=== PATIENT | female | born 1975 | race Caucasian/White ===

== ENCOUNTER → 2020-06-14 08:27 | Outpatient (CLI) | payer OTHER, SELFPAY ==
--- NOTE | ~2020-06-14 | MMUS_ITS ---
EXAMINATION: MM diagnostic nils BI w demetrice, US breast LT limited HISTORY: Left breast pain TECHNIQUE: Additional 3-D tomosynthesis images of the breasts were performed and synthetic 2-D images were generated. CAD analysis was submitted and interpreted. High resolution Limited left breast ultr asound was performed. COMPARISON: Comparison to multiple prior studies sequentially, with oldest reviewed study dated 04/06. BREAST PARENCHYMAL COMPOSITION: The breasts are heterogenously dense, which may obscure small masses. FINDINGS: MAMMOGRAPHIC FINDINGS: There are no suspicious masses, calcifications or architectural distortion in either breast to sugges t malignancy. ULTRASOUND: Limited left breast ultrasound, lateral half: At 4:00, 4 cm from the nipple, there is a 5 mm cyst. IMPRESSION: 1. No evidence for malignancy in either breast. 2. Routine yearly screening mammogram and regular clinical breast examination are recommended. BI-RADS Category 2: Benign finding(s). Reviewed, dictated and finalized at location A. IMPRESSION: 1. No evidence for malignancy in either breast. 2. Routine yearly screening mammogram and regular clinical breast examination a re recommended. BI-RADS Category 2: Benign finding(s).
== END ==
PROVIDERS: Visit Provider Obstetrics & Gynecology
DX: N64.4 Mastodynia (principal)
CPT/HCPCS: 76642; 77062; 77066; G0279

== ENCOUNTER → 2020-10-27 06:51 | Outpatient (CLI) | payer OTHER, SELFPAY ==
[2020-10-27 19:41] LABS: SARS-CoV-2 RNA PCR Negative
== END ==
PROVIDERS: PCP Family Medicine; Visit Provider Physician Assistant
DX: R05 Cough (principal); Z20.822 Contact with and (suspected) exposure to COVID-19
CPT/HCPCS: C9803; U0003; U0005

== ENCOUNTER → 2021-08-20 01:43 | Outpatient (CLI) | payer OTHER, SELFPAY ==
[2021-08-20 12:25] LABS: Influenza Control Positive
[2021-08-20 20:10] LABS: SARS-CoV-2 RNA PCR Positive
== END ==
PROVIDERS: PCP Family Medicine; Visit Provider Physician Assistant
DX: U07.1 COVID-19 (principal)
CPT/HCPCS: 87804; C9803; U0003; U0005

== ENCOUNTER 2021-12-01 07:21 | Observation (INO) | payer OTHER, SELFPAY ==
[2021-12-01] VITALS (14 sets, daily range): BP systolic 106–132; BP diastolic 54–83; PULSE 62–97; RESP 16–25; TEMP 36.2–36.8; O2SAT 98–100; BMI 26.4
--- NOTE | ~2021-12-01 | CT_ITS ---
EXAMINATION: CTA chest PE protocol DATE: 12/01/2021 09:11 INDICATION: Shortness of breath and cough TECHNIQUE: Computed tomography angiography (CTA) of the chest was performed with 100 mL Omnipaque-350 intravenous contrast timed to evaluate the pulmonary arteries. Coronal maximum intensity projection 3D-reconstructions were created by the technologist. The dose-length product (DLP) was 257.61 mGy-cm. Automated exposure control and iterative reconstruction technique were employed. COMPARISON: None. FINDINGS: The pulmonary arteries are well-opacified. No pulmonary embolism is identified. The lungs a re free of acute opacities. There is no pleural effusion or pneumothorax. No pathologically enlarged thoracic lymph nodes are identified. The heart size is normal. IMPRESSION: 1. No pulmonary embolism or acute cardiopulmonary abnormality. Reviewed, dictated and finalized at location B.
--- NOTE | ~2021-12-01 | XR_ITS ---
EXAMINATION: XR chest 1V portable 12/01/2021 07:49 INDICATION: Dyspnea, cough and shortness of breath PROCEDURE: AP portable chest COMPARISON: 03/24/2011 FINDINGS: The lungs are clear. The cardiomediastinal silhouette is within normal limits. There are no pleural effusions. There is no pneumothorax suspected. IMPRESSION: 1: NO ACUTE CARDIOPULMONARY DISEASE. Reviewed, dictated and finalized at location A.
--- NOTE | 2021-12-01 07:27 | ECG_ITS ---
Measurements Intervals Erin Rate: 92 P: 84 MS: 150 QRS: 69 QRSD: 93 T: -59 QT: 366 QTc: 454 Interpretive Statements SINUS RHYTHM ANTEROSEPTAL MYOCARDIAL INFARCTION , OF INDETERMINATE AGE [40+ ms Q WAVE IN V1-V4] MODERATE T-WAVE ABNORMALITY, CONSIDER INFERIOR ISCHEMIA [-0.1+ mV T-WAVE IN II/aVF] ABNORMAL ECG NO PREVIOUS ECG AVAILABLE FOR COMPARISON Electronically Signed On 12-01-2021 15:36:07 CDT by Gio Dobson M.D.
[2021-12-01] MEDS: methylPREDNISolone SOD SUCC 125 MG VIAL IV PUSH (07:31)
[2021-12-01] MEDS: IPRATROPIUM 0.5 MG/ALBUTEROL SULFATE 2.5 MG AMPUL.NEB 3 ML INHALATION ×5 (07:35→23:45)
[2021-12-01] MEDS: MAGNESIUM SULF 2 GM/WATER 50ML 2 GM/50 ML BAG IVPB (07:36)
--- NOTE | 2021-12-01 07:47 | ED.ASTHMA ---
HPI - Asthma General Chief Complaint: Asthma Stated Complaint: SOB ASTHMA Time Seen by Provider: 12/01/21 07:48 Source: patient Mode of arrival: ambulatory Limitations: no limitations History of Present Illness HPI Narrative: this is a 46-year-old female with a history asthma that presents with some increasing shortness of breath and cough, currently there is no audible wheezing patient respiratory rate 25. Patient has inhalers at home but was not able to use them came directly to the emergency department. Patient denies any fever chills, no chest pain no abdominal pain, there is no grunting or retracting. There is no nausea or vomiting, the patient has not been vaccinated for COVID, but had COVID earlier this year. Patient is nonsmoker and no contact with smoke at. MD complaint: asthma attack and shortness of breath Onset (ago): hour(s) Severity: moderate Context: none known Treatments Prior to Arrival: inhaled bronchodilator Related Data Allergies Allergy/AdvReac Type Severity Reaction Status Date / Time amoxicillin Allergy Unknown Hives Verified 12/01/21 07:38 banana Allergy Unknown THROAT Verified 12/01/21 07:38 CLOSES-DENIES LATEX ALLERGY Penicillins Allergy Unknown Hives Verified 12/01/21 07:38 Review of Systems Review of Systems: All systems reviewed & are unremarkable except as noted in HPI and below PMFSH Past Medical History Medical History Asthma Social History Social History Smoking status: Never smoker Second hand tobacco smoke exposure: No Alcohol intake: current Exam Const: General: no acute distress and alert Orientation/consciousness: patient oriented x3 HENMT: Head: normal to inspection Eyes: Conjunctivae: conjunctivae normal Pupils: Equal, round and reactive pupils present EOM: EOMs intact bilaterally Neck: Neck: normal visual inspection, no lymphadenopathy and no meningeal signs Chest: Chest palpation & inspection: normal inspection of the chest Resp: Effort & Inspection: normal respiratory effort Auscultation: diminished lung sounds Cardio: Rate: regular rate Rhythm: regular rhythm GI: Auscultation: normal bowel sounds : General: Yes no CVA tenderness Urinary Catheter: Urinary Catheter: patent and draining Skin: General skin exam: normal color Lesions: no lesions Neuro: General: patient oriented x3 and moves all extremities Extrem: General: normal to inspection and no pedal edema Psych: Mental Status: mental status grossly normal Affect: normal affect and Anxious affect present Attitude: cooperative Course Course Emergency Course: patient currently 100% O2 sats, initially her respiratory rate 25 patient received DuoNebs IV Solu-Medrol and 2mg IV magnesium, currently patient is more comfortable not coughing no audible wheezing respiratory rate is down to 21. Chest x-ray and labs reviewed. Patient had an elevated D-dimer CTA was performed which shows no pulmonary embolism. Patient potassium level was 3.0 will give her a dose of KCl p.o. 40 mEq. Vital Signs Vital signs: Vital Signs Temperature 36.2 C L 12/01/21 07:31 Pulse Rate 97 12/01/21 07:31 Respiratory Rate 25 H 12/01/21 07:31 Blood Pressure 125/83 12/01/21 07:31 Pulse Oximetry 100 12/01/21 07:31 Temperature 36.2 C L 12/01/21 07:31 Pulse Rate 76 12/01/21 08:29 Respiratory Rate 20 12/01/21 08:29 Blood Pressure 125/83 12/01/21 07:31 Pulse Oximetry 100 12/01/21 08:29 MDM - Asthma Lab Data Result diagrams: 12/01/21 07:57 12/01/21 07:57 Labs: Lab Results 12/01/21 12/01/21 12/01/21 Range/Units 07:39 07:56 07:57 WBC 4.7 L (4.8-10.8) K/mm3 RBC 4.57 (4.20-5.40) M/mm3 Hgb 14.4 (12.0-15.0) g/dL Hct 42.6 (35.0-49.0) % MCV 93.2 (78.0-102.0) fL MCH 31.5 H (27.0-31.0) pg MCHC
[2021-12-01 08:04] LABS: Base Excess ABG -1.3 mmol/L (0-2); Basophils Absolute Auto 0.03 K/mm3 (0.00-0.10); Basophils Percent Auto 0.6 % (0.0-1.0); Eosinophils Absolute Auto 0.15 K/mm3 (0.02-0.50); Eosinophils Percent Auto 3.2 % (1.0-6.0); HCO3 ABG 16.6 mmol/L (23-29); Hematocrit 42.6 % (35.0-49.0); Hemoglobin 14.4 g/dL (12.0-15.0); Immature Granulocyte Absolute 0.01 K/mm3 (0.00-0.00); Immature Granulocyte Percent A 0.2 % (0.0-0.0); Lymphocytes Absolute Auto 1.09 K/mm3 (1.10-4.50); Mean Corpuscular HGB Conc 33.8 g/dL (32.0-36.0); Mean Corpuscular Hemoglobin 31.5 pg (27.0-31.0); Mean Corpuscular Volume 93.2 fL (78.0-102.0); Mean Platelet Volume 10.3 fl (9.2-11.8); Monocytes Percent Auto 12.7 % (2.0-11.0); Neutrophils Absolute Auto 2.9 K/mm3 (1.7-7.2); Neutrophils Percent Auto 60.3 % (50.0-70.0); Oxygen Content ABG 19.1 %vol (16.0-22.0); Oxygen Saturation ABG 98.4 % (95-97); Oxyhemoglobin 97.8 % (94-100); PO2 ABG 104.6 mmHg (80-90); Platelet Count Result 218 K/mm3 (150-420); Red Blood Count 4.57 M/mm3 (4.20-5.40); Red Cell Distribution Width 13.2 % (11.6-14.4); Total Hemoglobin 13.8 g/dL (12.0-18.0); White Blood Count 4.7 K/mm3 (4.8-10.8); pH ABG 7.64 (7.35-7.45)
--- NOTE | 2021-12-01 08:07 | PC.NURSE ---
critical PCO2 15.7, erp made aware.
[2021-12-01 08:08] LABS: Device ROOM AIR; Modified Allen's Test Pass; PCO2 ABG 15.7 mmHg (35-45); Site Drawn RIGHT RADIAL
[2021-12-01 08:19] LABS: INR 0.9; Partial Thromboplastin Time 24.2 SEC (23.90-30.70); Prothrombin Time 9.8 Seconds (9.50-12.10)
[2021-12-01 08:20] LABS: SARS-CoV-2 RNA PCR Negative (Negative)
[2021-12-01 08:21] LABS: D Dimer 0.62 mg/L (0.19-0.50)
[2021-12-01 08:28] LABS: Alanine Aminotransferase 29 U/L (14-59); Albumin Level 4.4 g/dL (3.4-5.0); Alkaline Phosphatase 53 U/L (46-116); Anion Gap 17 mmol/L (8-16); Aspartate Amino Transferase 21 U/L (15-37); Bilirubin,Total 0.5 mg/dL (0.00-1.00); Blood Urea Nitrogen 9 mg/dL (7-18); Calcium 9.4 mg/dL (8.5-10.1); Carbon Dioxide 18 mmol/L (21-32); Chloride 102 mmol/L (98-108); Estimated CRCL calculation 56 ml/min; Estimated Glomerular Filt Rate 60; Glucose 108 mg/dL (70-99); NT Pro B Type Natriuretic Pept 71 pg/mL (0-125); Osmolality Calculated 283 mOsm/kg (285-295); Sodium 137 mmol/L (136-145); Total Protein 8.4 g/dL (6.4-8.2); Troponin I 8.3 ng/L (0.00-60.4)
[2021-12-01 09:10] LABS: Device ROOM AIR; HCO3 ABG 18.1 mmol/L (23-29); Modified Allen's Test Pass; Oxygen Content ABG 16.9 %vol (16.0-22.0); Oxygen Saturation ABG 98.4 % (95-97); Oxyhemoglobin 97.9 % (94-100); PCO2 ABG 25.2 mmHg (35-45); PO2 ABG 130.7 mmHg (80-90); Site Drawn RIGHT RADIAL; Total Hemoglobin 12.1 g/dL (12.0-18.0); pH ABG 7.48 (7.35-7.45)
[2021-12-01] MEDS: POTASSIUM CHLORIDE 20 MEQ TABLET 40 MEQ PO (09:40)
--- NOTE | 2021-12-01 10:39 | ADMGEN ---
This patient, Yesika Barrera, was admitted to 2nd Floor Room 203-2. OBS for exc. Patient/family oriented to hospital policies and general routines including ID bracelet, bed and alarms, visiting hours, pain management, procedures, bathroom and other care routines, personal items, smoking policy, room service/diet, and visiting hours. Information on how to activate the Rapid Response Team has been discussed. Patient/Family are encouraged to report perceived risks to care and to ask questions if they do not understand what they are told or what they should do.
[2021-12-01 12:03] LABS: Magnesium 3.9 mg/dL (1.8-2.4)
[2021-12-01] MEDS: methylPREDNISolone SOD SUCC 125 MG VIAL 80 MG IV PUSH ×2 (13:21→18:43)
[2021-12-01] MEDS: BENZONATATE 100 MG CAPSULE 200 MG PO ×2 (13:22→18:44)
[2021-12-01] MEDS: ACETAMINOPHEN 325 MG TABLET 650 MG PO (14:37)
[2021-12-01] MEDS: traMADol HCL (*CRX) 50 MG TABLET PO (19:02)
[2021-12-01] MEDS: guaiFENesin 12 HR 600 MG TABCR 1200 MG PO (20:27)
[2021-12-01] MEDS: traZODone HCL 50 MG TABLET PO (20:28)
[2021-12-02] VITALS: PULSE 80; RESP 18; O2SAT 100
[2021-12-02 05:20] LABS: Hematocrit 37.1 % (35.0-49.0); Hemoglobin 12.3 g/dL (12.0-15.0); Mean Corpuscular HGB Conc 33.2 g/dL (32.0-36.0); Mean Corpuscular Hemoglobin 31.8 pg (27.0-31.0); Mean Corpuscular Volume 95.9 fL (78.0-102.0); Mean Platelet Volume 10.2 fl (9.2-11.8); Platelet Count Result 198 K/mm3 (150-420); Red Blood Count 3.87 M/mm3 (4.20-5.40); Red Cell Distribution Width 13.3 % (11.6-14.4); White Blood Count 12.9 K/mm3 (4.8-10.8)
[2021-12-02 05:36] VITALS: PULSE 68; RESP 16; O2SAT 98
[2021-12-02] MEDS: IPRATROPIUM 0.5 MG/ALBUTEROL SULFATE 2.5 MG AMPUL.NEB 3 ML INHALATION (05:36)
[2021-12-02 05:45] LABS: Alanine Aminotransferase 22 U/L (14-59); Albumin Level 3.3 g/dL (3.4-5.0); Alkaline Phosphatase 40 U/L (46-116); Anion Gap 10 mmol/L (8-16); Aspartate Amino Transferase 13 U/L (15-37); Bilirubin,Total 0.2 mg/dL (0.00-1.00); Blood Urea Nitrogen 9 mg/dL (7-18); Calcium 8.2 mg/dL (8.5-10.1); Carbon Dioxide 22 mmol/L (21-32); Chloride 104 mmol/L (98-108); Estimated CRCL calculation 67 ml/min; Estimated Glomerular Filt Rate > 60; Glucose 168 mg/dL (70-99); Magnesium 2.1 mg/dL (1.8-2.4); Osmolality Calculated 284 mOsm/kg (285-295); Potassium 4.3 mmol/L (3.5-5.1); Sodium 136 mmol/L (136-145); Total Protein 6.6 g/dL (6.4-8.2)
[2021-12-02] MEDS: methylPREDNISolone SOD SUCC 125 MG VIAL 80 MG IV PUSH ×2 (05:49)
[2021-12-02 05:52] VITALS: PULSE 82; RESP 16; O2SAT 95
[2021-12-02 08:00] VITALS: BP 100/62; PULSE 74; RESP 18; TEMP 36.3; O2SAT 98
--- NOTE | 2021-12-02 08:09 | PM.SD2 ---
Same Day Admit/Disch: HPI History of Present Illness Chief complaint: ASTHMA EXCERBATION Narrative: Yesika Barrera is a 46 year old female that presented to our emergency department with complaints of shortness of breath. Patient has a past medical history of asthma. According to the patient lately she has been having increased asthma attacks. According to patient yesterday while at home she had a coughing attack which worsen her asthma and caused her to have a asthma attack. Patient notes that she did take her albuterol with no relief that is when she proceeded to our emergency department. Patient notes that after she received nebulizer treatment her condition improved. Vital signs 83, 16, 95% on room air, WBCs 4.7, hemoglobin 14.4, hematocrit 42.6, platelets 198, D-dimer 0.62, ABG pH 7.64, CO2 15.7, PO2 104.6, bicarb 16.6, sodium 137, potassium 3.0, BUN 9, creatinine 0.99, glucose 108, magnesium 3.9, AST 21 ALT 29, total bili 0.5, troponin 8.3, BUN 71, Covid negative, chest x-ray no acute findings, CTA no PE indicated. Patient will discharge home with Symbicort, nebulizer with solution. Patient agrees that she is ready for discharge. The patient denies SOB, CP, palpitation, extremity numbness, lightheadedness, dizziness, constipation, diarrhea, chills, or fever. [facility] Past Medical History Medical History Asthma Family History Family History (Updated 12/01/21 @ 10:30 by Opal Brenner RN) Other Asthma Social History Social History Smoking status: Never smoker Second hand tobacco smoke exposure: No Alcohol intake: current Drinks per week: 2 Substance use: never Spiritual care concerns: No Same Day Admit/Disch: Med Pre-admit Medications Home Medications Medication Instructions Recorded Confirmed Type albuterol sulfate 90 mcg/actuation 1 inh INHALATION Q4H PRN #8.5 g 02/08/21 12/01/21 Rx aerosol inhaler benzonatate 200 mg PO TID #30 cap 12/02/21 Rx budesonide-formoterol 1 inh INHALATION DAILY #10.2 g 12/02/21 Rx guaifenesin [Mucus Relief ER] 1,200 mg PO Q12HR #30 tablet 12/02/21 Rx ipratropium-albuterol 3 ml INHALATION Q4H PRN #180 ml 12/02/21 Rx methylprednisolone [Medrol (Ankit)] 4 mg PO DAILY #21 ea 12/02/21 Rx nebulizers #1 ea 12/02/21 Rx Exam Narrative: GENERAL: This is a well-nourished, well-developed patient, in no apparent distress. HEAD: normocephalic, atraumatic. EYES: PERRL. Sclera clear/white. Vision is grossly intact. EARS: External ears normal, auditory canals clear and without drainage, TMs normal without perforation. Hearing grossly intact. NOSE: External nose normal with no obvious nasal discharge, nares without redness, no rhinorrhea. THROAT: Mucous membranes moist, posterior pharynx clear. NECK: Neck supple, non-tender without lymphadenopathy, masses or thyromegaly. CARDIOVASCULAR: Regular rate and rhythm without murmurs, gallops, or rubs. RESPIRATORY: Clear to auscultation. Breath sounds equal bilaterally. No wheezes, rales, or rhonchi. GASTROINTESTINAL: Abdomen soft, non-tender, nondistended. Bowel sounds are active. No hepato-splenomegaly, or palpable masses. No guarding. SKIN: warm, intact with no suspicious lesions or rash, good texture and turgor. NEURO: awake, alert, and oriented to person, place and time. There were no obvious focal neurologic abnormalities. Steady gait EXTREMITIES: Normal range of motion. No edema. No calf tenderness. Negative Homans sign bilaterally. BACK: Nontender without deformity or crepitance. No flank tenderness. DS: Data Data Completed and Pending Labs on day of discharge: Labs from last 24 hours 12/02/21 12/02/21 12/01/21 05:08 05:08 08:51 WBC 12.9 H RBC 3.87 L Hgb 12.3 Hct 37.1 MCV 95.9 MCH 31.8 H MCHC 33.2 RDW 13.3 Plt Count 198 MPV 10.2 Immature Gran % (Auto) Neut % (Auto)
[2021-12-02] MEDS: guaiFENesin 12 HR 600 MG TABCR 1200 MG PO (08:39)
[2021-12-02] MEDS: BENZONATATE 100 MG CAPSULE 200 MG PO (08:39)
[2021-12-02] MEDS: ENOXAPARIN 40 MG/0.4 ML SYRINGE SUB-Q (08:40)
--- NOTE | 2021-12-02 10:46 | PC.NURSE ---
1000 daughter here and dc to her personal car. all instructions went over. vocalizes an understanding. lungs cta.
--- NOTE | 2021-12-06 09:51 | PC.NURSE ---
Pt states she received and understood her discharge instructions. Pt states you guys were all just great .
== END 2021-12-02 10:00 | disposition home or self-care (01) ==
LOC: CHSED 09:29 → CHS2ND 09:34
PROVIDERS: Nurse Practitioner; Admitting Provider Internal Medicine; Emergency Provider Emergency Medicine; PCP Family Medicine; Visit Provider Internal Medicine
DX: J45.901 Unspecified asthma with (acute) exacerbation (principal); E87.6 Hypokalemia; R79.1 Abnormal coagulation profile; Z20.822 Contact with and (suspected) exposure to COVID-19
CPT/HCPCS: 36415; 36600; 71045; 71275; 80053; 82805; 83735; 83880; 84484; 85025; 85027; 85380; 85610; 85730; 87040; 93005; 94640; 96365; 96372; 96375; 96376; 99285; A9270; C9803; G0378; J1650; J2930; J3475; Q9967; U0003; U0005

== ENCOUNTER 2022-05-11 08:05 | Outpatient (CLI) | payer OTHER, SELFPAY ==
--- NOTE | ~2022-05-11 | US_ITS ---
US right upper quadrant DATE: 05/11/2022 08:27 INDICATION: Abdominal pain TECHNIQUE: Real-time imaging liver, pancreas, gallbladder COMPARISON: None FINDINGS: Approximately 3.4 x 7.4 x 15 mm filling defect with shadowing is noted at the dependent asp ect of the gallbladder, consistent with gallstone. No gallbladder wall thickening. Negative sonograph ic Morales's sign. Pancreatic tail is obscured by bowel gas. No hepatic or pancreatic space-occupying mass lesion is not ed otherwise. Normal hepatopedal portal venous flow direction. The common bile duct measures 6 mm, at upper limits of normal range. IMPRESSION: Cholelithiasis Reviewed, dictated and finalized at Location A. Reviewed, dictated and finalized at location B. IMPRESSION: Cholelithiasis
[2022-05-11 08:37] LABS: Basophils Percent Auto 0.6 % (0.2-1.2); Eosinophils Absolute Auto 0.2 K/mm3 (0-0.3); Eosinophils Percent Auto 3.2 % (0-4.4); Hematocrit 41.2 % (37.0-47.0); Hemoglobin 13.7 g/dL (12.0-15.0); Immature Granulocyte Absolute 0.01 K/mm3 (0.00-0.031); Immature Granulocyte Percent A 0.2 % (0-0.5); Lymphocytes Absolute Auto 1.32 K/mm3 (0.9-3.2); Lymphocytes Percent Auto 26.6 % (18.3-44.2); Mean Corpuscular HGB Conc 33.3 g/dl (32-36); Mean Corpuscular Hemoglobin 31.5 pg (26-34); Mean Corpuscular Volume 94.7 fl (80-100); Mean Platelet Volume 10.1 fl (7.4-10.4); Monocytes Absolute Auto 0.3 K/mm3 (0.1-0.6); Monocytes Percent Auto 6.7 % (2.6-8.5); Neutrophils Absolute Auto 3.1 K/mm3 (1.3-6.7); Neutrophils Percent Auto 62.7 % (45.5-73.1); Platelet Count Result 262 k/mm3 (150-375); Red Blood Count 4.35 M/mm3 (4.2-5.4); Red Cell Distribution Width 12.6 % (11.5-14.5)
[2022-05-11 08:47] LABS: Alanine Aminotransferase 25 U/L (6-35); Albumin Level 4.6 g/dL (3.5-5.1); Alkaline Phosphatase 47 U/L (38-126); Anion Gap 13 mmol/L (8-16); Aspartate Amino Transferase 27 U/L (14-36); Bilirubin,Total 0.8 mg/dL (0.2-1.3); Blood Urea Nitrogen 14 mg/dL (7-17); Calcium 9.3 mg/dL (8.4-10.2); Carbon Dioxide 26 mmol/L (22-30); Chloride 101 mmol/L (98-107); Cholesterol 148 mg/dL (0-200); Estimated Glomerular Filt Rate > 60; Glucose 99 mg/dL (65-110); HDL Direct 49 mg/dL; Potassium 3.9 mmol/L (3.4-5.0); Sodium 140 mmol/L (137-145); Triglycerides 57 mg/dL (<150)
[2022-05-11 08:58] LABS: LDL Cholesterol Direct 76 mg/dL
== END 2022-05-11 08:06 | disposition home or self-care (01) ==
PROVIDERS: PCP Family Medicine; Visit Provider Physician Assistant Medical
DX: E78.2 Mixed hyperlipidemia (principal); R53.83 Other fatigue; R10.9 Unspecified abdominal pain; Z87.19 Personal history of other diseases of the digestive system; K80.20 Calculus of gallbladder without cholecystitis without obstruction
CPT/HCPCS: 36415; 76705; 80053; 80061; 85025

== ENCOUNTER 2022-05-23 07:49 | Outpatient (CLI) | payer OTHER, SELFPAY ==
[2022-05-23 08:28] LABS: Alanine Aminotransferase 23 U/L (6-35); Albumin Level 4.6 g/dL (3.5-5.1); Alkaline Phosphatase 44 U/L (38-126); Amylase 50 U/L (30-110); Aspartate Amino Transferase 24 U/L (14-36); Bilirubin,Total 0.5 mg/dL (0.2-1.3); Lipase 71 U/L (23-300)
== END 2022-05-23 07:50 | disposition home or self-care (01) ==
PROVIDERS: PCP Family Medicine; Visit Provider Surgery
DX: K80.20 Calculus of gallbladder without cholecystitis without obstruction (principal); Z01.818 Encounter for other preprocedural examination
CPT/HCPCS: 36415; 80076; 82150; 83690; 86850; 86900; 86901

== ENCOUNTER 2022-05-25 01:46 | Day surgery (SDC) | payer OTHER, SELFPAY ==
[2022-05-19 14:34] VITALS: BMI 25.9
--- NOTE | 2022-05-19 14:59 | PC.NURSE ---
Report to the Outpatient Waiting Room, entrance under the green pavilion located off [facility], at time 0600 on date 05/25/22. OR Time: _0730_. Time changes happen often and if your time is changed the preop area will call you the afternoon before. - You and your visitor will be asked to self-screen and do not enter if you have any COVID symptoms. - Only one visitor and NO children visitors are allowed at this time. - The patient visitor is requested to leave or wait in car when not with patient due to restrictions. - A mask is required within the hospital. Patients may have clear liquids (water, carbonated beverages, clear teas, apple juice) until 3 hours prior to surgery with a maximum of 20 ounces. - No food from midnight until time of surgery - Infants may have breast milk until 4 hours before surgery, infant formula 6 hours prior to surgery. - Children will be allowed to drink immediately following surgery. If applicable, please bring a bottle or sippy cup to assist with drinking. Juice, water, soda, and popsicles are readily available. For infants on formula, please bring formula the day of surgery. Pacifiers are allowed. Take the following medications with a SIP of water the morning of surgery: albuterol_ Medications to discontinue per physician _n/a_ Date to take last dose Please no make-up, nail chinese, hairspray, perfume, deodorant, or body powder the day of surgery. No jewelry (including any body piercings) or valuables the day of surgery, leave them at home. Please take a shower or bath the night before, or the morning of, surgery with an antibacterial soap. Wear comfortable, loose fitting clothing. Children are encouraged to wear pajamas. - Jewelry must be removed prior to entering the operating room. Rings and piercings that are not removed may be cut off. - The hospital will not accept responsibility for valuables. - Please leave all valuables, including medications, at home the day of surgery. If you are going home after surgery, a licensed bung driver must drive you home. - NO public transportation without another adult. - We recommend that an adult stay with you for 24 hours following discharge. - We also recommend that you do not drive, make important decision, drink alcoholic beverages, or take any drugs that were not prescribed by your health care provider for at least 24 hours after your discharge time. For Pediatric surgeries, we recommend two adults accompany the child home (only one inside the building at this time). Follow any additional instructions given to you from your surgeon. If you or anyone in your household have experienced Covid symptoms in the past week, please notify your surgeon or the nurse liaison at the phone number below for possible testing. Telephone instructions given to Yesika Barrera and asked if any additional questions and then verbalized understanding. Patient advised to call surgeon office or pre surgery nurse liaison [phone] if any additional questions.
[2022-05-25] VITALS (10 sets, daily range): BP systolic 100–124; BP diastolic 59–72; PULSE 48–77; RESP 14–20; TEMP 36.3; O2SAT 97–100
[2022-05-25] MEDS: LACTATED RINGERS 1,000 ML 30 ML IV CONT ×2 (06:25→08:47)
[2022-05-25] MEDS: INDOCYANINE GREEN 25 MG VIAL IV PUSH (06:30)
[2022-05-25] MEDS: KETOROLAC 15 MG/ML VIAL (*BKC) IV PUSH (06:32)
[2022-05-25] MEDS: ACETAMINOPHEN 500 MG TABLET 1000 MG PO (06:34)
--- NOTE | 2022-05-25 06:42 | WPDANESEPPF ---
Anes - Initial Pre Proc Eval Procedure: Operation Date: 05/25/22 07:30 Proposed Procedures p Robotic Assisted Laparoscopic Cholecystectomy - Faye Gonsalves MD Date/Time: 05/25/22 06:42 Surgeon: Faye Gonsalves MD Pre Op Diagnosis: biliary pancreatitis, cholelithiasis Patient Data Age: 46 Gender: F Height: 1.7 m Weight: 75 kg Allergies Allergy/AdvReac Type Severity Reaction Status Date / Time amoxicillin Allergy Unknown Hives Verified 05/19/22 09:22 banana Allergy Unknown THROAT Verified 05/25/22 06:43 CLOSES-DENIES LATEX ALLERGY Penicillins Allergy Unknown Hives Verified 05/19/22 09:22 Home Medications Medication Instructions Recorded Confirmed Type albuterol sulfate 90 mcg/actuation 1 inh inhalation Q4H PRN shortness 02/08/21 05/19/22 Rx aerosol inhaler (ProAir HFA) of breath or wheezing #8.5 grams ibuprofen 200 mg tablet (Advil) 200 mg PO Q6H PRN Pain 05/12/22 05/19/22 History Patient hx anesthesia problems: none Family hx anesthesia problems: none Results Review: All pre-operative results and documents have been reviewed as part of the pre-operative evaluation. [facility] Past Medical History Medical History Asthma Cholelithiasis History of acute pancreatitis Surgical History Surgical History H/O dilation and curettage Multiple Hx of hysterectomy 2017 Family History Family History Other Asthma Social History Social History Years smoked: 10 Smoking status: Former smoker Tobacco type: cigarettes Second hand tobacco smoke exposure: No Smoking end date: 09/10/02 Alcohol intake: never Drinks per week: 2 Substance use: never Substance use type: does not use Living arrangements: with family Gender identity (if verbalized by the patient): Female Spiritual care concerns: No Agree to blood products: Yes Anes - Eval Final PreProcedure Day of Procedure 05/25/22 06:42 Patient weight: normal Heart: regular rate and rhythm Lungs: clear to auscultation Airway: Mallampati scale class II Neurological: alert and oriented Last oral intake: >/= 8 hours ASA classification: II Emergent: no Anesthetic plan: proceed Anesthesia type and monitoring: general ETT and standard monitoring Results Review: All pre-operative results and documents have been reviewed as part of the pre-operative evaluation. Informed Consent: The patient's anesthetic plan and its attendant risks and benefits were discussed with the patient/family/POA. Questions were solicited and answers provided to the satisfaction of the patient/family/POA.
--- NOTE | 2022-05-25 07:22 | WPDHPUPDATE1 ---
History and Physical Update Update Date/Time: 05/25/22 07:22 History and Physical has been reviewed, including an updated exam of the patient. There are NO changes in the patient's condition. Risks, benefits, and alternatives have been discussed and questions answered. Patient agrees to proceed with procedure.
[2022-05-25] MEDS: ceFAZolin 2 GM/D5W 50 ML 2 GM/50 ML BAG IVPB (07:26)
[2022-05-25] MEDS: BUPIVACAINE/EPINEPHRINE 0.25% 50 ML VIAL 30 ML INFILTRATE (08:04)
--- NOTE | 2022-05-25 08:40 | W.PM.PROC2 ---
Procedure Note - Detailed Date of Procedure 05/25/22 Pre-op Diagnosis biliary pancreatitis, cholelithiasis Post-op Diagnosis Same Procedure Performed Robotic assisted cholecystectomy Surgeon Faye Gonsalves MD Anesthesia General Indications 46-year-old female presenting to the office status post conservative treatment of biliary pancreatitis. The patient also with noted cholelithiasis. Patient to be set up for interval cholecystectomy Findings moderate cholecystitis Description of Procedure The patient was taken to the operating room and placed in the supine position. After adequate induction of general anesthesia, the patient was prepped and draped in the normal sterile fashion. A time-out was then done to verify the patient's identity, as well as the procedure being performed. I began by making a 8 mm incision in the periumbilical region. A Veress needle was then placed in the peritoneal cavity and CO2 gas was insufflated. After adequate pneumoperitoneum was achieved, the Veress needle was removed and a 8 mm Optiview trocar was placed under direct visualization. Once into the abdominal cavity, the introducer was removed and the laparoscope was placed through this trocar site. Under direct visualization, I placed a further 12 mm port in the left mid abdomen and 2 8 mm ports in the right mid abdomen. The robot was then docked to these ports sites. I then went to the console. The gallbladder was then identified and noted to be moderately inflamed. I was able to place a grasper at the dome of the gallbladder and this was retracted up and over the liver. A 2nd retractor was used to grasp the infundibulum and retracted laterally. This allowed visualization and dissection of the triangle of Calot. There were some omental adhesions to the gallbladder and these were taken down with the cautery. I then began dissection around the triangle Calot. I first identified the cystic duct, I was able to visualize the entirety of the duct from its proximal insertion into the gallbladder 2 at the distal junction with the common hepatic/common bile duct junction. I did use the firefly visualization at this point to confirm the anatomy. The proximal cystic duct was then further skeletonized, clipped, and transected. Next I visualized the cystic artery. Again the structure was skeletonized, clipped, and transected. I then again used firefly to confirm anatomy and no aberrant anatomy was noted. I then used the Bovie cautery to take down the peritoneal attachments of the gallbladder off the liver bed. Once the gallbladder specimen was completely detached, an Endo pouch was placed through the 12 mm port site and the gallbladder specimen was placed in the endo-pouch and subsequently removed. I then re-examined the right upper quadrant. Hemostasis was noted in the liver bed and the clips were noted to be in good position on both the duct and the artery. No other pathology was seen in the right upper quadrant. All instruments were then removed and the robot was undocked. I then closed the 12 incision at the fascial level using a Júnior cone and 0 Vicryl suture under direct visualization. The abdomen was then desufflated and all ports were removed. All port sites were then closed with 4-0 Monocryl subcuticular suture. Dermabond was placed on each was wound. The patient tolerated the procedure well and was extubated in the operating room postop. The patient will now be transferred to the recovery room in stable condition. Estimated Blood Loss 5 Drains No Packing No Pathology Yes Complications No immediate complications Condition Stable Disposition PACU [facility] Billing Surgery - Charge Forward: Surgery Billing
[2022-05-25] MEDS: fentaNYL CITRATE INJ (*CRX) 100 MCG/2 ML VIAL 25 MCG IV PUSH ×4 (09:30→09:47)
[2022-05-25] MEDS: oxyCODONE HCL (*CRX) 5 MG TAB IR PO (10:25)
== END 2022-05-25 11:16 | disposition home or self-care (01) ==
PROVIDERS: PCP Family Medicine; Visit Provider Surgery
PROC: 0FT44ZZ Resection of Gallbladder, Percutaneous Endoscopic Approach (ICD-10-PCS; CPT 47562; principal; 2022-05-25 07:30)
DX: K80.10 Calculus of gallbladder with chronic cholecystitis without obstruction (principal); Z87.19 Personal history of other diseases of the digestive system; J45.909 Unspecified asthma, uncomplicated; Z87.891 Personal history of nicotine dependence; Z79.51 Long term (current) use of inhaled steroids
CPT/HCPCS: 47562; 88304; A9270; J0690; J1100; J1200; J1885; J2250; J2405; J2704; J2710; J3010; J7120

== ENCOUNTER 2023-01-10 14:21 | Outpatient (CLI) | payer OTHER, SELFPAY ==
[2023-01-10 14:47] LABS: Hematocrit 41.8 % (37.0-47.0); Hemoglobin 13.8 g/dL (12.0-15.0); Mean Corpuscular Hemoglobin 31.1 pg (26-34); Mean Corpuscular Volume 94.1 fl (80-100); Mean Platelet Volume 9.9 fl (7.4-10.4); Platelet Count Result 231 k/mm3 (150-375); Red Blood Count 4.44 M/mm3 (4.2-5.4); Red Cell Distribution Width 12.8 % (11.5-14.5); White Blood Count 5.3 K/mm3 (4.5-10.0)
[2023-01-10 15:02] LABS: Alanine Aminotransferase 58 U/L (6-35); Albumin Level 4.4 g/dL (3.5-5.1); Alkaline Phosphatase 58 U/L (38-126); Anion Gap 5 mmol/L (8-16); Aspartate Amino Transferase 50 U/L (14-36); Bilirubin,Total 0.4 mg/dL (0.2-1.3); Blood Urea Nitrogen 11 mg/dL (7-17); Calcium 8.5 mg/dL (8.4-10.2); Carbon Dioxide 30 mmol/L (22-30); Chloride 103 mmol/L (98-107); Estimated Glomerular Filt Rate > 60; Glucose 104 mg/dL (65-110); Potassium 4.3 mmol/L (3.4-5.0); Sodium 138 mmol/L (137-145)
[2023-01-10 15:15] LABS: Monoscreen Negative (Negative); Negative Monotest Control Negative (Negative); Positive Monotest Control Positive (Positive)
[2023-01-10 15:24] LABS: Influenza A QL RT-PCR Negative (Negative); Influenza B QL RT-PCR Negative (Negative); RSV RNA, RT-PCR Negative (Negative); SARS-CoV-2 RNA PCR Negative (Negative)
[2023-01-11 10:28] LABS: Hepatitis B Surface Antigen Negative (Negative)
[2023-01-11 10:51] LABS: HAV RESULT Negative (Negative); Hepatitis B Core IgM Result Negative (Negative); Hepatitis C Virus Antibody Negative (Negative)
[2023-01-16 12:45] LABS: EBV Nuclear Ab Antibody <18.00 U/mL (<18.00); EBV Nuclear Ab Interpretation Recent; EBV Virus Capsid Ag IgM Ab <36.00 U/mL (<36.00)
== END 2023-01-10 14:22 | disposition home or self-care (01) ==
PROVIDERS: PCP Family Medicine; Visit Provider Family Medicine
DX: R50.9 Fever, unspecified (principal); R79.89 Other specified abnormal findings of blood chemistry
CPT/HCPCS: 36415; 80053; 80074; 85027; 86308; 86664; 86665; 87637

== ENCOUNTER 2023-10-18 02:34 | Emergency (ER) | payer OTHER, SELFPAY ==
[2023-10-18] VITALS (43 sets, daily range): BP systolic 98–140; BP diastolic 67–92; PULSE 48–71; RESP 12–24; TEMP 36.6; O2SAT 96–100
--- NOTE | ~2023-10-18 | XR_ITS ---
Portable chest x-ray Comparison: 12/01/2021 Clinical History: Chest pain Findings: Lungs are clear, without focal consolidation or pleural effusion. Cardiomediastinal silho uette is stable. Bones and soft tissues are unremarkable. Impression: Normal chest. Reviewed, dictated and finalized at [facility]. ER MAKER Impression: Normal chest.
--- NOTE | 2023-10-18 02:38 | ED.CHESTPAIN ---
HPI - Chest Pain General Chief Complaint: Chest Pain Stated Complaint: chest pain Time Seen by Provider: 10/18/23 02:37 Source: patient Mode of arrival: ambulatory Limitations: no limitations History of Present Illness HPI narrative: 48-year-old female, ex-smoker with a history of gallstones status post cholecystectomy, pancreatitis, asthma presents to the ER with a 3 day history of -- chest pain- pain is on the right side of the sternum and is rated as 7/10. She had pain on 2 prior occasions, yesterday and the day before yesterday. The pain lasted few minutes and resolved spontaneously. The pain woke her up from sleep this morning and has been continuous for the last half an hour. No nausea/ vomiting. No diaphoresis. No lightheadedness. She complains of shortness of breath. The pain radiates backwards. her chest pain as sharp and stabbing. It is made worse by deep breathing and coughing. MD complaint: chest pain Pertinent past history: asthma Onset (ago): minute(s) ( 30 minutes) Timing of current episode: constant Prior episodes: Yes Onset: during rest Pain location: right chest Pain radiation: back Severity: severe Pain scale (0-10): 7 Quality: aching Relieving factors: nothing Exacerbating factors: nothing Risk Factors Coronary artery disease risk factors: smoking history Related Data On Oral Contraceptives: No Home Medications Medication Instructions Recorded Confirmed ibuprofen 200 mg tablet (Advil) 200 mg PO Q6H PRN Pain 05/12/22 10/18/23 Allergies Allergy/AdvReac Type Severity Reaction Status Date / Time amoxicillin Allergy Unknown Hives Verified 10/18/23 03:02 banana Allergy Unknown THROAT Verified 10/18/23 03:02 CLOSES-DENIES LATEX ALLERGY Penicillins Allergy Unknown Hives Verified 10/18/23 03:02 Review of Systems Review of Systems: All systems reviewed & are unremarkable except as noted in HPI and below Constitutional: Constitutional: Reports as per HPI and Reports no additional constitutional complaints Eyes: Eyes: Reports as per HPI and Reports no additional eye complaints ENT: Reports system reviewed and no additional complaints, except as documented Cardiovascular: Cardiovascular: Reports as per HPI, Reports no additional cardiovascular complaints and Reports chest pain Respiratory: Respiratory: Reports as per HPI, Reports no additional respiratory complaints and Reports dyspnea Gastrointestinal: Gastrointestinal: Reports as per HPI and Reports no additional gastrointestinal complaints Genitourinary: Genitourinary: Reports no additional female genitourinary complaints and Reports as per HPI Musculoskeletal: Musculoskeletal: Reports no additional musculoskeletal complaints and Reports as per HPI Integumentary/Breasts: Skin/Breast: Reports system reviewed and no additional complaints, except as docu and Reports as per HPI Neurologic: Reports system reviewed and no additional complaints, except as documented and Reports as per HPI Psychiatric: Psychiatric: Reports no additional psychiatric complaints and Reports as per HPI Endocrine: Endocrine: Reports no additional endocrine complaints and Reports as per HPI Hematologic/Lymphatic: Hematologic/Lymphatic: Reports no additional hematologic/lymphatic complaints and Reports as per HPI Allergic/Immunologic: Allergic/Immunologic: Reports no additional allergic/immunologic complaints and Reports as per HPI PMFSH Past Medical History Medical History Asthma Cholelithiasis History of acute pancreatitis Surgical History Surgical History H/O dilation and curettage Multiple Hx of hysterectomy 2017 S/P laparoscopic cholecystectomy Family History Family History Other Asthma Social History Social History (Reviewed 10/18/23 @ 02:54 by Matthew Baltazar
--- NOTE | 2023-10-18 02:40 | ECG_ITS ---
Measurements Intervals [place] Rate: 53 P: 69 FL: 164 QRS: 8 QRSD: 94 T: 63 QT: 452 QTc: 428 Interpretive Statements SINUS BRADYCARDIA SEPTAL MYOCARDIAL INFARCTION , PROBABLY OLD [40+ ms Q WAVE IN V1/V2] COMPARED TO ECG 10/18/2023 2:31 NO SIGNIFICANT CHANGES Electronically Signed On 10-18-2023 11:07:08 [employer]PERVISOR [employer]ODUCT [employer]CTION by Ashley Chandra M.D.
[2023-10-18 02:49] LABS: Basophils Absolute Auto 0.04 K/mm3 (0.00-0.10); Basophils Percent Auto 0.5 % (0.0-1.0); Eosinophils Absolute Auto 0.47 K/mm3 (0.02-0.50); Eosinophils Percent Auto 5.8 % (1.0-6.0); Hematocrit 38.1 % (35.0-49.0); Hemoglobin 12.6 g/dL (12.0-15.0); Immature Granulocyte Absolute 0.02 K/mm3 (0.00-0.00); Immature Granulocyte Percent A 0.2 % (0.0-0.0); Lymphocytes Percent Auto 29.9 % (18.0-42.0); Mean Corpuscular HGB Conc 33.1 g/dL (32.0-36.0); Mean Corpuscular Hemoglobin 30.7 pg (27.0-31.0); Mean Corpuscular Volume 92.9 fL (78.0-102.0); Monocytes Absolute Auto 0.56 K/mm3 (0.10-0.90); Neutrophils Absolute Auto 4.6 K/mm3 (1.7-7.2); Neutrophils Percent Auto 56.6 % (50.0-70.0); Platelet Count Result 215 K/mm3 (150-420); Red Cell Distribution Width 12.8 % (11.6-14.4)
[2023-10-18] MEDS: ASPIRIN 81 MG CHEWABLE TABLET 324 MG PO (02:54)
[2023-10-18] MEDS: NITROGLYCERIN SL 0.4 MG TABLET SUBLINGUAL (02:57)
[2023-10-18 03:01] LABS: INR 0.9; Partial Thromboplastin Time 24.5 SEC (23.90-30.70); Prothrombin Time 10.2 Seconds (9.50-12.10)
[2023-10-18 03:08] LABS: Lactic Acid Reflex 0.6 mmol/L (0.4-2.0)
[2023-10-18 03:10] LABS: Alanine Aminotransferase 29 U/L (14-59); Albumin Level 3.6 g/dL (3.4-5.0); Alkaline Phosphatase 45 U/L (46-116); Anion Gap 7 mmol/L (8-16); Aspartate Amino Transferase 18 U/L (15-37); Bilirubin,Total 0.3 mg/dL (0.00-1.00); Blood Urea Nitrogen 15 mg/dL (7-18); Calcium 8.2 mg/dL (8.5-10.1); Carbon Dioxide 29 mmol/L (21-32); Chloride 105 mmol/L (98-108); Estimated CRCL calculation 76 ml/min; Estimated Glomerular Filt Rate > 60; Glucose 104 mg/dL (70-99); Osmolality Calculated 292 mOsm/kg (285-295); Sodium 141 mmol/L (136-145); Total Protein 6.7 g/dL (6.4-8.2)
[2023-10-18 03:11] LABS: NT Pro B Type Natriuretic Pept 53 pg/mL (0-125)
--- NOTE | 2023-10-18 06:30 | ECG_ITS ---
Measurements Intervals [place] Rate: 56 P: 73 [place]: 157 QRS: 2 QRSD: 98 T: 60 QT: 429 QTc: 416 Interpretive Statements SINUS BRADYCARDIA SEPTAL MYOCARDIAL INFARCTION , OF INDETERMINATE AGE [40+ ms Q WAVE IN V1/V2] COMPARED TO ECG 12/01/2021 07:40:43 SINUS BRADYCARDIA NOW PRESENT Electronically Signed On 10-18-2023 11:06:31 OFFICE AUTOMATION TECHNICIAN by Ashley Chandra M.D.
== END 2023-10-18 07:01 | disposition home or self-care (01) ==
PROVIDERS: Emergency Provider Internal Medicine Critical Care Medicine; PCP Family Medicine
DX: R07.9 Chest pain, unspecified (principal); Z90.49 Acquired absence of other specified parts of digestive tract; Z79.1 Long term (current) use of non-steroidal anti-inflammatories (NSAID); Z87.891 Personal history of nicotine dependence
CPT/HCPCS: 36415; 71045; 80053; 83605; 83880; 84484; 85025; 85380; 85610; 85730; 93005; 99284; A9270

== ENCOUNTER 2023-12-10 07:20 | Emergency (ER) | payer OTHER, SELFPAY ==
[2023-12-10] VITALS (34 sets, daily range): BP systolic 74–135; BP diastolic 64–90; PULSE 45–72; RESP 11–24; TEMP 36.9; O2SAT 97–100
--- NOTE | ~2023-12-10 | CT_ITS ---
EXAMINATION: CTA chest DATE: 12/10/2023 09:32 INDICATION: Right chest pain radiating to the back. TECHNIQUE: Computed tomographic angiography (CTA) of the chest was performed with 100 mL Omnipaque-35 0 intravenous contrast. Automated exposure control and iterative reconstruction technique were employ ed. The dose-length product was 299.44 mGy-cm. Maximum intensity projection 3D-reconstructions of the aorta and other arteries were constructed by the technologist on a separate workstation. COMPARISON: Chest CT 12/01/2021 FINDINGS: There is mild scarring at the lung apices. There is mild atelectasis bilaterally. No pleura l effusion. The heart size is normal. No pericardial effusion. There is no pulmonary embolus. Thoraci c aorta is normal. There is mild thoracic spondylosis. IMPRESSION: 1. Normal thoracic aorta. 2. No pulmonary embolus. Reviewed, dictated and finalized at location A.
--- NOTE | ~2023-12-10 | XR_ITS ---
EXAMINATION: XR chest 2V DATE: 12/10/2023 07:55 INDICATION: Chest pain. TECHNIQUE: Frontal and lateral views of the chest were obtained. COMPARISON: None. FINDINGS: There is mild scarring at the lung apices. No pleural effusion or pneumothorax. The heart s ize is normal. There are likely changes of distal left clavicle resection. IMPRESSION: 1. Mild scarring at the lung apices. Reviewed, dictated and finalized at location A.
--- NOTE | 2023-12-10 07:27 | ED.CHESTPAIN ---
HPI - Chest Pain General Chief Complaint: Chest Pain Stated Complaint: chest pain Time Seen by Provider: 12/10/23 07:27 Source: patient Mode of arrival: ambulatory Limitations: no limitations History of Present Illness HPI narrative: Patient is a 48-year-old female with recurrent right-sided chest pain. She has a stress test and echo planned in the next month. She has sharp pains. Pain is reproducible. MD complaint: chest pain and chest discomfort Onset (ago): month(s) (1) Timing of current episode: episodic Prior episodes: Yes Onset: during rest, during exertion, after eating and awoke with symptoms Pain location: substernal, right chest and lateral Pain radiation: back and right shoulder Severity: moderate Pain scale (0-10): 6 Quality: tightness and sharp Relieving factors: movement Exacerbating factors: exertion, inspiration, eating, palpation and movement Treatment prior to arrival: none Risk Factors Coronary artery disease risk factors: none Thoracic aortic dissection risk factors: none Related Data On Oral Contraceptives: No Home Medications Medication Instructions Recorded Confirmed ibuprofen 200 mg tablet (Advil) 200 mg PO Q6H PRN Pain 05/12/22 12/10/23 Allergies Allergy/AdvReac Type Severity Reaction Status Date / Time amoxicillin Allergy Unknown Hives Verified 12/10/23 07:30 banana Allergy Unknown THROAT Verified 12/10/23 07:30 CLOSES-DENIES LATEX ALLERGY Penicillins Allergy Unknown Hives Verified 12/10/23 07:30 Review of Systems Review of Systems: All systems reviewed & are unremarkable except as noted in HPI and below Constitutional: Constitutional: Reports no additional constitutional complaints Eyes: Eyes: Reports no additional eye complaints ENT: Reports system reviewed and no additional complaints, except as documented Cardiovascular: Cardiovascular: Reports no additional cardiovascular complaints Respiratory: Respiratory: Reports no additional respiratory complaints Gastrointestinal: Gastrointestinal: Reports no additional gastrointestinal complaints Genitourinary: Genitourinary: Reports no additional female genitourinary complaints Musculoskeletal: Musculoskeletal: Reports no additional musculoskeletal complaints Integumentary/Breasts: Skin/Breast: Reports system reviewed and no additional complaints, except as docu Neurologic: Reports system reviewed and no additional complaints, except as documented Psychiatric: Psychiatric: Reports no additional psychiatric complaints Endocrine: Endocrine: Reports no additional endocrine complaints Hematologic/Lymphatic: Hematologic/Lymphatic: Reports no additional hematologic/lymphatic complaints Allergic/Immunologic: Allergic/Immunologic: Reports no additional allergic/immunologic complaints PMFSH Past Medical History Medical History Asthma Cholelithiasis History of acute pancreatitis Surgical History Surgical History H/O dilation and curettage Multiple Hx of hysterectomy 2017 S/P laparoscopic cholecystectomy Family History Family History Other Asthma Social History Social History Years smoked: 10 Smoking status: Former smoker Tobacco type: cigarettes Second hand tobacco smoke exposure: No Smoking end date: 09/10/02 Alcohol intake: never Drinks per week: 2 Substance use: never Substance use type: does not use Living arrangements: with family Gender identity (if verbalized by the patient): Female Spiritual care concerns: No Agree to blood products: Yes Exam Const: General: healthy appearing Nutritional Appearance: well nourished Orientation/consciousness: patient oriented x3 HENMT: Head: normal to inspection Ears: external ears normal Face/Nose/Si
--- NOTE | 2023-12-10 07:29 | ECG_ITS ---
Measurements Intervals [place] Rate: 48 P: 61 [place]: 151 QRS: 80 QRSD: 98 T: 20 QT: 454 QTc: 406 Interpretive Statements SINUS BRADYCARDIA WITH PACS PREVIOUS ANTERIOR WALL PA NONSPECIFIC ST AND T-WAVE ABNORMALITY ABNORMAL ECG COMPARED TO ECG 10/18/2023 06:19:25 NO SIGNIFICANT CHANGE Electronically Signed On 12-10-2023 12:48:57 CDT by Jorgito Guerrero M.D.
[2023-12-10 07:47] LABS: Basophils Absolute Auto 0.03 K/mm3 (0.00-0.10); Basophils Percent Auto 0.5 % (0.0-1.0); Eosinophils Absolute Auto 0.54 K/mm3 (0.02-0.50); Eosinophils Percent Auto 8.7 % (1.0-6.0); Hematocrit 36.8 % (35.0-49.0); Hemoglobin 12.4 g/dL (12.0-15.0); Immature Granulocyte Absolute 0.01 K/mm3 (0.00-0.00); Immature Granulocyte Percent A 0.2 % (0.0-0.0); Lymphocytes Absolute Auto 1.79 K/mm3 (1.10-4.50); Lymphocytes Percent Auto 28.9 % (18.0-42.0); Mean Corpuscular HGB Conc 33.7 g/dL (32-36); Mean Corpuscular Hemoglobin 30.7 pg (27.0-31.0); Mean Corpuscular Volume 91.1 fL (78.0-102.0); Monocytes Absolute Auto 0.48 K/mm3 (0.10-0.90); Monocytes Percent Auto 7.7 % (2.0-11.0); Neutrophils Absolute Auto 3.35 K/mm3 (1.70-7.20); Platelet Count Result 210 K/mm3 (150-420); Red Blood Count 4.04 M/mm3 (4.20-5.40); Red Cell Distribution Width 12.4 % (11.6-14.4); White Blood Count 6.2 K/mm3 (4.8-10.8)
[2023-12-10] MEDS: KETOROLAC (*BKC) 60 MG/2 ML VIAL IM (07:48)
[2023-12-10 08:01] LABS: D Dimer 0.24 mg/L (0.19-0.50)
[2023-12-10 08:12] LABS: Alanine Aminotransferase 37 U/L (14-59); Albumin Level 3.7 g/dL (3.4-5.0); Alkaline Phosphatase 45 U/L (46-116); Anion Gap 11 mmol/L (4-12); Aspartate Amino Transferase 20 U/L (15-37); Bilirubin,Total 0.5 mg/dL (0.00-1.00); Blood Urea Nitrogen 16 mg/dL (7-18); Calcium 8.8 mg/dL (8.5-10.1); Carbon Dioxide 25 mmol/L (21-32); Chloride 103 mmol/L (98-108); Estimated CRCL calculation 82 ml/min; Estimated Glomerular Filt Rate > 60; Glucose 103 mg/dL (70-99); Lipase 32 U/L (16-77); NT Pro B Type Natriuretic Pept 95 pg/mL (0-125); Osmolality Calculated 289 mOsm/kg (285-295); Potassium 3.7 mmol/L (3.5-5.1); Sodium 139 mmol/L (136-145); Total Protein 6.6 g/dL (6.4-8.2)
--- NOTE | 2023-12-10 08:33 | PC.NURSE ---
pt is lying on stretcher awaiting results. pt denies any change in condition, however pt is much more relaxed and no longer tearful. erp is at bedside. will continue to monitor.
--- NOTE | 2023-12-10 08:41 | PC.NURSE ---
WHILE ERP IS AT BEDSIDE, PT BECOMES TEARFUL AGAIN, REPORTING PAIN IS NOT ANY BETTER. MEDICATIONS TO BE ADMINISTERED ORDERED. PT REPORTS CAN PICK HER UP AND TRANSPORT HOME DUE TO MORPHINE ORDER, HOWEVER PT DOES HAVE TO AWAIT A 3 HOUR REPEAT TROPONIN DRAW. WILL CONTINUE TO MONITOR.
[2023-12-10] MEDS: MORPHINE SULFATE (*CRX) 4 MG/ML INJ IV PUSH (08:51)
--- NOTE | 2023-12-10 09:33 | PC.NURSE ---
PT HAS RETURNED FROM CT AND UA WAS COLLECTED AND SENT TO LAB. DAUGHTER REMAINS AT BEDSIDE. PT CONTINUES TO BE BRADYCARDIC, ERP IS AWARE. NAD NOTED. PT IS AWAITING RESULTS AT THIS TIME. WILL CONTINUE TO MONITOR.
[2023-12-10 09:45] LABS: Appearance Urine Clear (Clear); Bilirubin Urine Negative (Negative); Blood Urine Negative (Negative); Color Urine Light Yellow (Yellow); Glucose Urine UA Negative (Negative); Ketones Urine Negative (Negative); Leukocyte Esterase Ur Negative LEU/UL (Negative); Nitrate Urine Negative (Negative); Protein Urine Negative (Negative); Urobilinogen Urine 0.2 mg/dL (0.2-1.0)
[2023-12-10 09:49] LABS: Add Urine Microscopic? NO
--- NOTE | 2023-12-10 10:30 | PC.NURSE ---
PT IS SITTING UP TALKING WITH DAUGHTER AND SMILING. STRETCHER ADJUSTED FOR COMFORT. PT DENIES ANY NEEDS OR COMPLAINTS AT THIS TIME. NAD NOTED. PT REPORTS PAIN REMAINS AT A 5/10. WILL CONTINUE TO MONITOR.
[2023-12-10 11:03] LABS: Troponin I 4.5 ng/L (0.00-60.4)
--- NOTE | 2023-12-10 11:18 | ED.GENADULT ---
HPI - General Adult General Chief complaint: Chest Pain Stated complaint: chest pain Time Seen by Provider: 12/10/23 07:27 Source: patient Mode of arrival: ambulatory Limitations: no limitations History of Present Illness HPI narrative: Assumed care from Dr. Young at 0800. Please see his document for history and physcial. Related Data Home Medications Medication Instructions Recorded Confirmed ibuprofen 200 mg tablet (Advil) 200 mg PO Q6H PRN Pain 05/12/22 12/10/23 Allergies Allergy/AdvReac Type Severity Reaction Status Date / Time amoxicillin Allergy Unknown Hives Verified 12/10/23 07:30 banana Allergy Unknown THROAT Verified 12/10/23 07:30 CLOSES-DENIES LATEX ALLERGY Penicillins Allergy Unknown Hives Verified 12/10/23 07:30 Review of Systems Review of Systems: All systems reviewed & are unremarkable except as noted in HPI and below PMFSH Past Medical History Medical History Asthma Cholelithiasis History of acute pancreatitis Surgical History Surgical History H/O dilation and curettage Multiple Hx of hysterectomy 2017 S/P laparoscopic cholecystectomy Family History Family History Other Asthma Social History Social History Years smoked: 10 Smoking status: Former smoker Tobacco type: cigarettes Second hand tobacco smoke exposure: No Smoking end date: 09/10/02 Alcohol intake: never Drinks per week: 2 Substance use: never Substance use type: does not use Living arrangements: with family Gender identity (if verbalized by the patient): Female Spiritual care concerns: No Agree to blood products: Yes Exam Const: General: cooperative, healthy appearing, comfortable, no acute distress, well developed, alert, awake and Physically active Orientation/consciousness: oriented to person, oriented to place and oriented to time HENMT: Head: normal to inspection, normocephalic and atraumatic Ears: hearing grossly normal bilaterally and external ears normal Face/Nose/Sinus: Normal external nose present Eyes: General: appearance normal, both eyes and all related structures Periorbital: periorbital findings normal Sclera: sclerae normal Pupils: Equal, round and reactive pupils present Neck: Neck: normal visual inspection Chest: Chest palpation & inspection: normal inspection of the chest Other: upper right chest was TTP Resp: Effort & Inspection: normal respiratory effort, able to speak in complete sentences and no respiratory distress Cardio: Jugular venous distension: no JVD Rate: regular rate Skin: General skin exam: normal color and no rashes or lesions noted Neuro: General: oriented to person, oriented to place and oriented to time Cranial nerves: Yes Equal, round and reactive pupils present Extrem: General: normal to inspection Course Course Emergency Course: Pain continued and started to move to back so CT was ordered. EXAMINATION: CTA chest DATE: 12/10/2023 09:32 INDICATION: Right chest pain radiating to the back. TECHNIQUE: Computed tomographic angiography (CTA) of the chest was performed with 100 mL Omnipaque-350 intravenous contrast. Automated exposure control and iterative reconstruction technique were employed. The dose-length product was 299.44 mGy-cm. Maximum intensity projection 3D-reconstructions of the aorta and other arteries were constructed by the technologist on a separate workstation. COMPARISON: Chest CT 12/01/2021 FINDINGS: There is mild scarring at the lung apices. There is mild atelectasis bilaterally. No pleural effusion. The heart size is normal. No pericardial effusion. There is no pulmonary embolus. Thoracic aorta is normal. There is mild thoracic spondylosis. IMPRESSION: 1. Normal thoracic
== END 2023-12-10 11:30 | disposition home or self-care (01) ==
PROVIDERS: Emergency Medicine; Emergency Provider Family Medicine; PCP Family Medicine
DX: R07.89 Other chest pain (principal); J45.909 Unspecified asthma, uncomplicated; Z87.891 Personal history of nicotine dependence
CPT/HCPCS: 36415; 71046; 71275; 80053; 81003; 83690; 83880; 84484; 85025; 85380; 93005; 96372; 96374; 99284; J1885; J2270; Q9967

== ENCOUNTER 2023-12-20 07:40 | Outpatient (CLI) | payer OTHER, SELFPAY ==
--- NOTE | 2023-12-20 08:05 | EST_ITS ---
Patient Info Name: Yesika Barrera Age: 48 years : 1975 Gender: Female Ht: 65 in Wt: 165 lbs BSA: 1.87 m2 HR: 54 bpm BP: 134 / 87 mmHg Heart Rhythm: Sinus Rhythm Exam Date: 12/20/2023 9:03 AM Exam Location: Echo Lab Patient Status: Outpatient Admit Date: 12/20/2023 Staff Ordering Physician: Baldemar Pereira DO Attending Provider: Baldemar Pereira DO Exercise Technologist: Marley Oropeza CT Exercise Physician: Baldemar Pereira DO Exam Type: CA stress test treadmill Study Info Indications R07.89 - Other chest pain A treadmill exercise stress test was performed. Summary 1. 1. Abnormal Aj exercise stress test for ischemic ST changes by ECG criteria. 2. 2. Good functional capacity, achieving 9.5 METs of workload, and stopped due to significant ST depression. 3. 3. Appropriate HR response to exercise. 4. 4. Appropriate HR recovery at 1 minute post exercise. 5. 5. No imaging with stress testing. 6. 6. Patient informed of the above results. Protocol: Aj Stress ECG Details Stage: REST Duration (min): 1 min : 0 sec Speed (mph): 0.0 Grade (%): 0 HR (bpm): 54 SBP (mmHg): 134 DBP (mmHg): 87 METS: --- Stage: REST Duration (min): 5 min : 23 sec Speed (mph): 0.0 Grade (%): 0 HR (bpm): 63 SBP (mmHg): 134 DBP (mmHg): 87 METS: --- Stage: STAGE 1 Duration (min): 1 min : 0 sec Speed (mph): 1.7 Grade (%): 10 HR (bpm): 87 SBP (mmHg): 134 DBP (mmHg): 87 METS: --- Stage: STAGE 1 Duration (min): 2 min : 0 sec Speed (mph): 1.7 Grade (%): 10 HR (bpm): 100 SBP (mmHg): 134 DBP (mmHg): 87 METS: --- Stage: STAGE 1 Duration (min): 3 min : 0 sec Speed (mph): 1.7 Grade (%): 10 HR (bpm): 104 SBP (mmHg): 133 DBP (mmHg): 73 METS: --- Stage: STAGE 2 Duration (min): 1 min : 0 sec Speed (mph): 2.5 Grade (%): 12 HR (bpm): 114 SBP (mmHg): 133 DBP (mmHg): 73 METS: --- Stage: STAGE 2 Duration (min): 2 min : 0 sec Speed (mph): 2.5 Grade (%): 12 HR (bpm): 120 SBP (mmHg): 154 DBP (mmHg): 75 METS: --- Stage: STAGE 2 Duration (min): 3 min : 0 sec Speed (mph): 2.5 Grade (%): 12 HR (bpm): 129 SBP (mmHg): 154 DBP (mmHg): 75 METS: --- Stage: STAGE 3 Duration (min): 1 min : 0 sec Speed (mph): 3.4 Grade (%): 14 HR (bpm): 142 SBP (mmHg): 154 DBP (mmHg): 75 METS: --- Stage: STAGE 3 Duration (min): 1 min : 29 sec Speed (mph): 3.4 Grade (%): 14 HR (bpm): 146 SBP (mmHg): 154 DBP (mmHg): 75 METS: --- Stage: RECOVERY Duration (min): 0 min : 30 sec Speed (mph): 0.0 Grade (%): 0 HR (bpm): 132 SBP (mmHg): 154 DBP (mmHg): 75 METS: --- Stage: RECOVERY Duration (min): 1 min : 30 sec Speed (mph): 0.0 Grade (%): 0 HR (bpm): 99 SBP (mmHg): 160 DBP (mmHg): 79 METS: --- Stage: RECOVERY Duration (min): 2 min : 30 sec Speed (mph): 0.0 Grade (%): 0 HR (bpm): 82 SB
--- NOTE | 2023-12-20 08:05 | ECHO_ITS ---
Patient Info Name: Yesika Barrera Age: 48 years : 1975 Gender: Female Ht: 65 in Wt: 165 lbs BSA: 1.87 m2 HR: 46 bpm BP: 130 / 83 mmHg Technical Quality: Good Exam Date: 12/20/2023 8:10 AM Exam Location: Echo Lab Patient Status: Outpatient Admit Date: 12/20/2023 Staff Ordering Physician: Baldemar Pereira DO Record Producer: Cali Dunn RDMS Attending Provider: Baldemar Pereira DO Referring Physician: Randall DE LA GARZA; Exam Type: CA echo dop color flow Study Info Indications R06.09 - Other forms of dyspnea Complete two-dimensional, color flow and Doppler transthoracic echocardiogram is performed. Summary 1. Complete two-dimensional, color flow and Doppler transthoracic echocardiogram is performed. 2. Left ventricular chamber dimension is normal. 3. Left ventricular systolic function is normal, estimated at 60-65%. 4. The left ventricular diastolic function is normal. 5. E/e' 7 is not elevated. 6. No pulmonary hypertension, estimated pulmonary arterial systolic pressure is 24 mmHg. 7. There is trace pulmonic regurgitation. Left Ventricle E/e' 7 is not elevated. Left ventricular chamber dimension is normal. Left ventricular systolic function is normal, estimated at 60-65%. The left ventricular diastolic function is normal. Right Ventricle Right ventricular systolic function is normal and with normal TAPSE 2.8 cm. Right ventricular chamber dimension is normal. Left Atria Left atrial chamber dimension is normal. Right Atria Right atrial chamber dimension is normal. Aortic Valve The aortic valve is trileaflet. There is no aortic valve stenosis. There is no aortic valve regurgitation. Pulmonic Valve There is trace pulmonic regurgitation. Mitral Valve There is no mitral valve stenosis. There is no mitral valve regurgitation. Tricuspid Valve There is no tricuspid valve regurgitation. No pulmonary hypertension, estimated pulmonary arterial systolic pressure is 24 mmHg. Pericardium/Pleural There is no pericardial effusion. Inferior Vena Cava Normal inferior vena cava with >50% collapse upon inspiration consistent with normal right atrial pressure, 5 mmHg. Aorta The aortic root size at the sinus of Valsalva is normal. Left Ventricular Outflow Tract Name Value Normal LVOT 2D LVOT Diameter 1.93 cm LVOT Doppler LVOT Peak Gradient 5 mmHg LVOT Mean Gradient 2 mmHg LVOT VTI 25.51 cm LVOT VTI/AV VTI Ratio 0.89 LVOT Stroke Volume 74.73 ml LVOT CO 3.41 l/min LVOT CI 1.83 L/min/m2 Pulmonic Valve Name Value Normal RVOT Doppler RVOT Peak Gradient 2 mmHg PV Doppler
== END 2023-12-20 07:41 | disposition home or self-care (01) ==
LOC: ANHCARD 07:49
PROVIDERS: PCP Family Medicine; Visit Provider Internal Medicine Cardiovascular Disease
DX: R06.09 Other forms of dyspnea (principal); R07.9 Chest pain, unspecified
CPT/HCPCS: 93017; 93306; C8929; J2785

== ENCOUNTER 2024-01-08 15:51 | Outpatient (CLI) | payer OTHER, SELFPAY ==
--- NOTE | ~2024-01-08 | MM_ITS ---
EXAMINATION: MM screening nils BI w demetrice HISTORY: Screening mammogram TECHNIQUE: Craniocaudal and mediolateral oblique 3-D tomosynthesis images were obtained and synthetic 2-D images were generated. CAD analysis was submitted and interpreted. COMPARISON: 06/14/2020 diagnostic bilateral mammogram and limited left breast ultrasound examination BREAST PARENCHYMAL COMPOSITION: There are scattered areas of fibroglandular density. FINDINGS: There is no evidence of suspicious mass, calcification, or architectural distortion to sugg est malignancy in either breast. There has been no suspicious interval change. IMPRESSION: 1. No mammographic evidence of malignancy. 2. Recommend routine screening mammography in one year. BI-RADS Category 1: Negative Reviewed, dictated and finalized at location A.
== END 2024-01-08 15:52 ==
LOC: MICIMG 15:53
PROVIDERS: PCP Physician Assistant Medical; Visit Provider Physician Assistant Medical
DX: Z12.31 Encounter for screening mammogram for malignant neoplasm of breast (principal)
CPT/HCPCS: 77063; 77067

== ENCOUNTER 2024-07-24 10:16 | Outpatient (CLI) | payer OTHER, SELFPAY ==
--- NOTE | ~2024-07-24 | XR_ITS ---
Left ankle Technique: AP and lateral views were obtained. Clinical History: Pain Findings: No acute fracture or dislocation is seen. Osseous alignment is anatomic. Ankle mortise and other visualized joint spaces are preserved. Soft tissues are otherwise unremarkable. Impression: Unremarkable left ankle. Reviewed, dictated and finalized at location . D PATTERN SETTER Impression: Unremarkable left ankle.
== END 2024-07-24 10:17 | disposition home or self-care (01) ==
PROVIDERS: PCP Family Medicine; Visit Provider Family Medicine
DX: S90.02XA Contusion of left ankle, initial encounter (principal); X58.XXXA Exposure to other specified factors, initial encounter; M25.572 Pain in left ankle and joints of left foot
CPT/HCPCS: 73600

== ENCOUNTER 2024-08-26 12:50 | Outpatient (CLI) | payer OTHER, SELFPAY ==
[2024-08-26 14:15] LABS: Influenza A QL RT-PCR Negative (Negative); Influenza B QL RT-PCR Negative (Negative); RSV RNA, RT-PCR Negative (Negative); SARS-CoV-2 RNA PCR Negative (Negative)
== END 2024-08-26 12:51 | disposition home or self-care (01) ==
PROVIDERS: PCP Family Medicine; Visit Provider Family Medicine
DX: J06.9 Acute upper respiratory infection, unspecified (principal); Z20.822 Contact with and (suspected) exposure to COVID-19
CPT/HCPCS: 87637

== ENCOUNTER 2025-01-09 11:19 | Outpatient (CLI) | payer OTHER, SELFPAY ==
--- NOTE | ~2025-01-09 | MM_ITS ---
EXAMINATION: MM screening nils BI w demetrice HISTORY: Screening TECHNIQUE: Craniocaudal and mediolateral oblique 3-D tomosynthesis images were obtained and synthetic 2-D images were generated. CAD analysis was submitted and interpreted. COMPARISON: Comparison to multiple prior studies sequentially, with oldest reviewed study dated 04/06. BREAST PARENCHYMAL COMPOSITION: Not dense: There are scattered areas of fibroglandular density. FINDINGS: There is no evidence of suspicious mass, calcification, or architectural distortion to sugg est malignancy in either breast. There has been no suspicious interval change. IMPRESSION: 1. No mammographic evidence of malignancy. 2. Recommend routine screening mammography in one year. BI-RADS Category 1: Negative Reviewed, dictated and finalized at location A.
== END 2025-01-09 11:20 | disposition home or self-care (01) ==
LOC: MICIMG 11:20
PROVIDERS: PCP Family Medicine; Visit Provider Family Medicine
DX: Z12.31 Encounter for screening mammogram for malignant neoplasm of breast (principal)
CPT/HCPCS: 77063; 77067